=== PATIENT | male | born 1960 | race Caucasian/White ===

== ENCOUNTER 2017-04-04 21:43 | Emergency (ER) | payer OTHER ==
[~2017-04-04 21:43] MED LIST: AMLO10TA3 PO; ASPI-973 PO; ATOR80TA PO; LISI10TA PO
[2017-04-04] MEDS ORDERED: 0.9% Sodium Chloride 1,000 ML IV ONE (21:51)
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
[2017-04-04] MEDS ORDERED: Ondansetron 2 mg/mL 2 mL Inj IVPUSH ONE (21:55)
[2017-04-04] MEDS ORDERED: fentaNYL-PF 50 mCg/mL 2 mL Inj ONE (22:03)
[2017-04-04 22:05] LABS: BASOPHILS % (AUTO) 0.6 % (0-3); EOSINOPHILS % (AUTO) 5.3 % (0-5); MONOCYTES % (AUTO) 9.8 % (4-12); Mean Corpuscular Hemoglobin 30.3 pg (27.0-35.0); Mean Corpuscular Volume 88.3 fL (81-100); NEUTROPHILS % (AUTO) 62.2 % (40-74); Platelet Count 223 bil/L (150-400)
[2017-04-04] MEDS ORDERED: fentaNYL-PF 50 mCg/mL 2 mL Inj IVPUSH ONE (22:05)
[2017-04-04] MEDS ORDERED: fentaNYL-PF 50 mCg/mL 2 mL Inj IVPUSH PRN (22:10)
[2017-04-04] MEDS ORDERED: Labetalol 5 mg/mL 20 mL Inj ONE (22:26)
[2017-04-04] MEDS ORDERED: Labetalol 5 mg/mL 4 mL Inj IVPUSH ONE (22:30)
[2017-04-04 22:36] LABS: INR 0.93 ratio
[2017-04-04] MEDS ORDERED: NitroPRUSSIDE Inj 50,000 MCG in Dextrose 5% 248 ML IV ONE ×2 (22:45→22:50)
[2017-04-04] MEDS ORDERED: Esmolol 2,500 mg/250 mL NS 2,500,000 MCG in IV Premix 1 EACH IV ONE (22:50)
[2017-04-04] MEDS ORDERED: TdaP Vaccine 0.5 mL Inj IM ONE ×3 (22:59→23:40)
[2017-04-04 23:00] LABS: Lipase 37 U/L (13-60); Magnesium 1.9 mg/dL (1.6-2.6)
[2017-04-04 23:27] LABS: COLOR,URINE YELLOW (YELLOW)
[2017-04-04 23:28] LABS: APPEARANCE,URINE CLEAR (CLEAR,HAZY); OCCULT BLOOD,URINE TRACE (NEGATIVE); UROBILINOGEN,URINE NORMAL (NORMAL)
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
--- NOTE | 2017-04-05 07:48 | DRSVH ---
PROCEDURE: CT CERVICAL SPINE WITHOUT CONTRAST ([id number]) INDICATIONS: correction TECHNIQUE: Noncontrast 3 mm thick sections acquired from the skull base to the T4 level. Sagittal and coronal r eformats were then constructed. For radiation dose reduction, the following was used: automated exp osure control, adjustment of mA and/or kV according to patient size. COMPARISON: None. FINDINGS: Image quality: Excellent. Bones: No fractures or dislocations. Visualized superior ribs are intact. There is moderate degener ative disc disease C5-C6, and mild degenerative disease at C3-C4, C4-C5 and C6-C7. There is uncoverte bral hypertrophy and bilateral facet arthropathy scattered cervical spine. Soft tissues: Prevertebral soft tissues are normal in thickness. No paravertebral hematomas. No ap ical pneumothoraces. IMPRESSION: 1. No fractures in cervical spine. 2. Degenerative changes as described. No significant discrepancy with the pasteurizer radiology preliminary report. Dictated by: Josie Cook M.D. on 04/05/2017 at 7:44 Approved by: Josie Cook M.D. on 04/05/2017 at 7:47
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
== END 2017-04-04 23:40 | disposition short-term general hospital (02) ==
LOC: SED 22:49
DX: I71.2 Thoracic aortic aneurysm, without rupture (principal); I10 Essential (primary) hypertension; V22.4XXA Motorcycle driver injured in collision with two- or three-wheeled motor vehicle in traffic accident, initial encounter; Y93.9 Activity, unspecified; Y92.410 Unspecified street and highway as the place of occurrence of the external cause; Y99.8 Other external cause status; E78.5 Hyperlipidemia, unspecified; F17.200 Nicotine dependence, unspecified, uncomplicated; Z23 Encounter for immunization; Z79.82 Long term (current) use of aspirin; Z79.899 Other long term (current) drug therapy
CPT/HCPCS: 36415; 70450; 71010; 71260; 72125; 74177; 80053; 81001; 81002; 83690; 83735; 84484; 85025; 85610; 85730; 86850; 90471; 90715; 93005; 96374; 96375; 96376; 99291; G0390; G0480; J2250; J2405; J3010; J7030; Q9967